=== PATIENT | male | born 1990 | race Two or more races ===

== ENCOUNTER 2024-02-28 13:07 | Emergency (ER) | payer SELFPAY ==
[~2024-02-28] VITALS: Ht 190.5 cm; Wt 108.0 kg
[2024-02-28 14:51] VITALS: TEMP 98.2
[2024-02-28] MEDS ORDERED: AUG875T PO (14:55)
[2024-02-28] MEDS ORDERED: TRAZ-181 PO (14:55)
[2024-02-28 15:30] VITALS: BP 150/106
[2024-02-28 15:31] VITALS: PULSE 76; RESP 16; O2SAT 98
== END 2024-02-28 15:40 | disposition home or self-care (01) ==
LOC: ER 13:07
DX: J32.9 Chronic sinusitis, unspecified (principal); G47.9 Sleep disorder, unspecified
CPT/HCPCS: 70450